=== PATIENT | female | born 1965 | race Two or more races ===

== ENCOUNTER 2017-08-09 12:54 | Emergency (ER) | payer BC, OTHER ==
[~2017-08-09] VITALS: Ht 165.1 cm; Wt 97.1 kg
[~2017-08-09 12:54] MED LIST: ANAS1TAB6 PO; ATOR40TA52 PO; DOC100C PO; GABA-339 PO; METF-370 PO; Pantoprazole Sodium Sesquihydr PO
[2017-08-09 14:18] LABS: Basophils # (auto) 0 uL; Basophils % (auto) 0.8 % (0.0-2.0); CONDITION Y; DEFINITIVE SEE PRINTOUT; Eosinophils # (auto) 0 uL; Eosinophils % (auto) 1.7 % (0.0-7.0); Hematocrit 28.3 % (36.0-46.0); Hemoglobin 9.7 g/dL (12.2-16.2); Lymphocytes # (auto) 0.7 uL; Lymphocytes % (auto) 33.1 % (10.0-50.0); Mean Corpuscular Hemoglobin 35.1 pg (28.0-32.0); Mean Corpuscular Hgb Conc. 34.2 g/dL (32.0-36.0); Mean Corpuscular Volume 102.6 fL (80.0-100.0); Mean Platelet Volume 7.1 fL (6.9-10.8); Monocytes # (auto) 0.1 uL; Monocytes % (auto) 7.2 % (0.0-12.0); Neutrophils # (auto) 1.2 uL; Neutrophils % (auto) 57.2 % (37.0-80.0); Platelet Count (auto) 232 10^3/uL (140-450); Red Cell Distribution Width 16.5 % (11.8-14.3); White Blood Cell 2.1 10^3/uL (4.4-10.8)
[2017-08-09 14:46] LABS: Albumin 3.5 g/dL (3.4-5.0); BUN/Creatinine Ratio 9.1; Bilirubin, Total 0.4 mg/dL (0.2-1.0); Calcium 9.2 mg/dL (8.5-10.1); Potassium 4.3 mmol/L (3.5-5.1); Total Protein 8.5 g/dL (6.4-8.2)
[2017-08-09 19:22] LABS: Urine Bilirubin Negative (Negative); Urine Blood 1+ /uL (Negative); Urine Color Yellow (Yellow); Urine Glucose Normal (Normal); Urine Ketone Negative (Negative); Urine Mucus FEW (None Seen); Urine Nitrite Negative (Negative); Urine RBC 7 /hpf (0 - 4); Urine Squamous Epithelial Cell FEW /hpf (<5); Urine Urobilinogen Normal (Negative); Urine WBC Clumps PRESENT /hpf (None Seen); Urine pH 5.5 (5.0-8.0)
[2017-08-09] MEDS ORDERED: SODIUM CHLORIDE 0.9% 1,000 ML IV ONE (19:45)
[2017-08-09] MEDS ORDERED: ONDANSETRON HCL 4 MG/2 ML VIAL IV ONE (19:45)
[2017-08-09] MEDS ORDERED: HYDROmorphone HCL 2 MG/ML VL IV ONE (19:45)
[2017-08-09 20:38] LABS: B-Type Natriuretic Peptide 12.81 pg/mL (0-100)
[2017-08-09 20:54] LABS: Temperature: 22.7 C (20.0-25.0)
[2017-08-09] MEDS ORDERED: cefTRIAXone 1GM/50ML D5W 50 ML IV ONE (21:15)
[2017-08-09 23:45] VITALS: BP 114/73
== END 2017-08-10 01:30 | disposition home or self-care (01) ==
LOC: ER 12:57
DX: C50.919 Malignant neoplasm of unspecified site of unspecified female breast (principal); N39.0 Urinary tract infection, site not specified; J90 Pleural effusion, not elsewhere classified; M79.1 Myalgia; E11.9 Type 2 diabetes mellitus without complications; E78.5 Hyperlipidemia, unspecified; I10 Essential (primary) hypertension; Z98.51 Tubal ligation status
CPT/HCPCS: 36415; 71020; 80053; 81001; 83880; 84484; 85025; 93005; 96361; 96365; 96375; 99285; J0696; J1170; J2405; J7030